=== PATIENT | female | born 1970 | race Hispanic/Latino ===

== ENCOUNTER → 2020-12-23 | Outpatient (CLI) | payer OTHER | END | disposition home or self-care (01) | LOC: RAH 10:44 | PROVIDERS: ATTEND Internal Medicine Cardiovascular Disease | DX: Z13.6 Encounter for screening for cardiovascular disorders (principal) | CPT/HCPCS: 75571 ==

== ENCOUNTER 2023-01-30 05:58 | Day surgery (SDC) | payer MEDICAID ==
[2023-01-26 09:02] LABS: BASOPHILS % (AUTO) 0.2 % (0.0-5.0); EOSINOPHILS % (AUTO) 2.5 % (0.0-8.0); HEMATOCRIT 37.6 % (36-48); LYMPHOCYTES % (AUTO) 28.4 % (21.0-51.0); MEAN CORPUSCULAR HEMOGLOBIN 27.3 pg (27.0-33.0); MEAN CORPUSCULAR HGB CONC 31.4 g/dL (32.0-36.0); MEAN CORPUSCULAR VOLUME 86.8 fL (79-99); MONOCYTES % (AUTO) 5.7 % (3.0-13.0); NEUTROPHILS % (AUTO) 62.9 % (40.0-77.0); PLATELET COUNT (AUTO) 230 K/uL (130-400); RED BLOOD CELL COUNT(AUTO) 4.33 MIL/uL (4.00-5.50); RED CELL DISTRIBUTION WIDTH 14.2 % (11.0-15.5); WHITE BLOOD COUNT (AUTO) 6.1 K/uL (4.8-10.8)
[2023-01-26 09:12] LABS: CREATININE 0.7 mg/dL (0.5-1.5); POTASSIUM 3.8 mmol/L (3.5-5.1)
[2023-01-26 09:15] LABS: INR 0.93 (0.85-1.15); PROTHROMBIN TIME 9.8 SEC (9.6-11.6)
[2023-01-26 09:16] LABS: PARTIAL THROMBOPLASTIN TIME 30.4 SEC (26.3-35.5)
[2023-01-26 09:28] LABS: B-TYPE NATRIURETIC PEPTIDE 9 pg/mL (0-100)
[2023-01-26 09:30] VITALS: BP 128/64
[2023-01-26 10:14] LABS: APPEARANCE,URINE CLEAR (CLEAR); BILIRUBIN,URINE NEGATIVE (NEGATIVE); COLOR,URINE LIGHT-YELLOW (YELLOW); GLUCOSE, URINE (UA) >=1000 mg/dL (NEGATIVE); KETONES,URINE NEGATIVE (NEGATIVE); LEUKOCYTE ESTERASE ,URINE NEGATIVE Leu/uL (NEGATIVE); NITRATE,URINE NEGATIVE (NEGATIVE); OCCULT BLOOD,URINE NEGATIVE (NEGATIVE); PH,URINE 5.5 (5.0-8.0); PROTEIN,URINE NEGATIVE (NEGATIVE); UROBILINOGEN,URINE 0.2 mg/dL (0.2-1.0)
[2023-01-26 10:21] LABS: MUCUS,URINE RARE LPF (None Seen); RBC,URINE 0-1 /HPF (0-1); SQUAMOUS EPITHELIAL CELL,UR FEW /HPF (0-2)
[~2023-01-30] VITALS: Ht 160 cm; Wt 89.8 kg
[2023-01-30] VITALS (9 sets, daily range): BP systolic 117–128; BP diastolic 61–80
[~2023-01-30 05:58] MED LIST: 0.9% NACL 500ML IV.SOLN 500 ML IV SCH; DAPA1TAB3 PO; DULO60CA64 PO; ESTR1TAB17 PO; GABA300C PO; INSU100V37 SQ; LINA5TAB PO; LISI5TAB21 PO; ROSU10TA28 PO; TRAZ-185 PO
[2023-01-30] MEDS ORDERED: 0.9%NACL 1000ML 1,000 ML IV ONE (06:44)
[2023-01-30] MEDS ORDERED: LIDOCAINE HCL 400MG/20ML VIAL ONE (07:06)
[2023-01-30] MEDS ORDERED: FENTANYL CITRATE PF 50 MCG/1 ML 2ML VIAL ONE ×2 (07:06→07:56)
[2023-01-30] MEDS ORDERED: HEPARIN 10,000 UNIT/10ML (1,000 UNIT/ML) VIAL ONE (07:07)
[2023-01-30] MEDS ORDERED: MIDAZOLAM HCL 5 MG/ML 2ML VIAL IV ONE (07:07)
[2023-01-30] MEDS ORDERED: MIDAZOLAM HCL 1 MG/ML 2ML VIAL ONE ×3 (07:08→07:56)
[2023-01-30] MEDS ORDERED: IODIXANOL 320 MG/ML 100 ML VIAL ONE (07:08)
[2023-01-30] MEDS ORDERED: ASPIRIN 81MG CHEW TAB ONE (08:13)
[2023-01-30] MEDS ORDERED: CLOPIDOGREL 300MG TAB ONE (08:13)
[2023-01-30] MEDS ORDERED: GLUCAGON 1MG KIT 1 MG ML IM PRN (08:30)
[2023-01-30] MEDS ORDERED: HYDRALAZINE 20MG/ML VIAL IV PRN (08:30)
[2023-01-30] MEDS ORDERED: DEXTROSE 50%-WATER 50 ML DISP.SYRIN IV PRN (08:30)
[2023-01-30] MEDS ORDERED: ONDANSETRON 4MG INJ ONE (08:46)
[2023-01-30] MEDS ORDERED: ACETAMINOPHEN WITH CODEINE 1 TAB TAB ONE (09:19)
[2023-01-30] MEDS ORDERED: INSULIN HUMULIN R 100 UNIT/ML 3ML SQ SCH (11:30)
== END 2023-01-30 11:20 | disposition home or self-care (01) ==
LOC: DAH 05:58
PROVIDERS: ATTEND Internal Medicine Cardiovascular Disease
DX: I87.1 Compression of vein (principal); I87.2 Venous insufficiency (chronic) (peripheral); I10 Essential (primary) hypertension; E08.40 Diabetes mellitus due to underlying condition with diabetic neuropathy, unspecified; M79.7 Fibromyalgia; E66.9 Obesity, unspecified; E78.49 Other hyperlipidemia; Z83.3 Family history of diabetes mellitus; Z90.710 Acquired absence of both cervix and uterus; Z98.891 History of uterine scar from previous surgery; Z82.49 Family history of ischemic heart disease and other diseases of the circulatory system; Z68.34 Body mass index [BMI] 34.0-34.9, adult; Z79.899 Other long term (current) drug therapy; Z98.890 Other specified postprocedural states; Z79.01 Long term (current) use of anticoagulants
CPT/HCPCS: 80048; 83880; 85025; 85610; 85730; 81001; 36415; 71045; 93005; 37238; 37239; 36012; 37252; 37253 ×5; 82948 ×2; 75822; C1876 ×2; C1894 ×4; C1725; C1753; C1769; J3010 ×2; J3490 ×2; J7030; J1644 ×3; J2250 ×2; J2405; A4215; A4222; A4221; A4663; A4216; A4606; A4223 ×3; 36010; 99156; 99157; Q9967